=== PATIENT | male | born 1980 | race Caucasian/White ===

== ENCOUNTER 2024-12-08 08:20 | Outpatient (CLI) | payer OTHER, SELFPAY | END 2024-12-08 08:21 | disposition home or self-care (01) | PROVIDERS: PCP Family Medicine; Visit Provider Family Medicine | DX: R53.83 Other fatigue (principal); E03.9 Hypothyroidism, unspecified; F41.1 Generalized anxiety disorder | CPT/HCPCS: 80053; 82306; 83735; 84443; 85025 ==

== ENCOUNTER 2025-03-12 14:24 | Outpatient (CLI) | payer OTHER, SELFPAY | END 2025-03-12 14:25 | disposition home or self-care (01) | LOC: NFLDREF 03-15 08:01 | PROVIDERS: PCP Family Medicine; Referring Provider Family Medicine; Visit Provider Family Medicine | DX: E78.2 Mixed hyperlipidemia (principal); R53.83 Other fatigue; Z13.29 Encounter for screening for other suspected endocrine disorder; Z13.0 Encounter for screening for diseases of the blood and blood-forming organs and certain disorders involving the immune mechanism | CPT/HCPCS: 80048; 80061; 84439; 84443; 85025 ==

== ENCOUNTER 2025-03-29 11:14 | Outpatient (CLI) | payer BC, SELFPAY ==
[2025-03-29 14:02] LABS: Amphetamine Screen Urine Negative (Negative); Barbiturate Screen Urine Negative (Negative); Benzodiazepines Screen Urine Negative (Negative); Cannabinoid Screen Urine POSITIVE (Negative); Cocaine Screen Urine Negative (Negative); Methadone Screen Urine Negative (Negative); Methamphetamines Screen Urine Negative (Negative); Opiate Screen Urine Negative (Negative); Oxycodone Screen Urine Negative (Negative); Phencyclidine Screen Urine Negative (Negative); Tricyclic Antidepressant Urine Negative (Negative)
== END 2025-03-29 11:15 | disposition home or self-care (01) ==
PROVIDERS: PCP Family Medicine; Visit Provider Family Medicine
DX: N52.9 Male erectile dysfunction, unspecified (principal); R68.82 Decreased libido; F12.980 Cannabis use, unspecified with anxiety disorder; R53.83 Other fatigue
CPT/HCPCS: 80306; 84403

== ENCOUNTER 2025-04-24 15:36 | Outpatient (CLI) | payer BC, SELFPAY | END 2025-04-24 15:37 | disposition home or self-care (01) | LOC: FBOREF 15:38 | PROVIDERS: PCP Family Medicine; Visit Provider Family Medicine | DX: F12.10 Cannabis abuse, uncomplicated (principal); R39.11 Hesitancy of micturition | CPT/HCPCS: 80306 ==

== ENCOUNTER 2025-10-30 16:28 | Outpatient (CLI) | payer OTHER, SELFPAY | END 2025-10-30 16:29 | disposition home or self-care (01) | PROVIDERS: PCP Family Medicine; Visit Provider Family Medicine | DX: E78.2 Mixed hyperlipidemia (principal); E03.9 Hypothyroidism, unspecified | CPT/HCPCS: 80048; 80061; 84443 ==